=== PATIENT | female | born 1965 | race African-American/Black ===

== ENCOUNTER 2018-06-12 08:37 | Inpatient (IN) | payer SELFPAY ==
[~2018-06-12] VITALS: Ht 152.4 cm; Wt 61.7 kg
[2018-06-12 09:15] LABS: BASOPHILS % 0.7 % (0.0-2.0); EOSINOPHILS % 10.2 % (0.0-5.0); HEMOGLOBIN. 12.3 g/dL (12.0-16.0); LYMPHOCYTES % 32.9 % (20.0-50.0); MEAN CORPUSCULAR HEMOGLOBIN 26.9 pg (28.0-32.0); MEAN PLATELET VOLUME 7.6 fl (7.4-10.4); MONOCYTES % 5.6 % (2.0-8.0); NEUTROPHILS % 50.6 % (40.0-76.0); PLATELET 240 x1000/uL (130-400); RED BLOOD CELL COUNT 4.59 mill/uL (4.2-5.4); RED CELL DISTRIBUTION WIDTH 15.6 % (11.6-14.6)
[2018-06-12 09:18] LABS: CHLORIDE 106 mEq/L (98-107)
[2018-06-12 09:22] LABS: ETHANOL BLOOD < 10 mg/dL
[2018-06-12] MEDS ORDERED: METOCLOPRAMIDE HCL 10MG/2ML VIAL IV ONE (10:00)
[2018-06-12] MEDS ORDERED: KETOROLAC 30MG/ML VIAL IV ONE (10:00)
[2018-06-12] MEDS ORDERED: SODIUM CHLORIDE 0.9% 1,000 ML IV ONE ×2 (10:00→13:47)
[2018-06-12] MEDS ORDERED: LAMOTRIGINE 100MG TABLET PO STA (10:59)
[2018-06-12] MEDS ORDERED: CARBAMAZEPINE 200MG TABLET PO ONE (11:30)
[2018-06-12] MEDS ORDERED: ALBUTEROL (0.083%) 2.5MG/3ML NEB HHN STA (11:49)
[2018-06-12] MEDS ORDERED: IPRATROPIUM BROMIDE (0.02%) 0.5MG/2.5ML NEB HHN STA (11:49)
[2018-06-12] MEDS ORDERED: METHYLPREDNISOLONE SOD SUCC 125 MG/2 ML VIAL IV STA (11:51)
[2018-06-12] MEDS ORDERED: LEVOFLOXACIN 750MG PREMIX 150 ML IV ONE (13:45)
[2018-06-12] MEDS ORDERED: ACETAMINOPHEN 325MG TABLET PO PRN (14:00)
[2018-06-12] MEDS ORDERED: CLONIDINE 0.1MG TABLET PO PRN (14:00)
[2018-06-12] MEDS ORDERED: LORAZEPAM 2MG/ML CPJ IV PRN (14:00)
[2018-06-12] MEDS ORDERED: MAGNESIUM/ALUMINUM HYDROXIDE/SIMETHICONE 30ML UDC PO PRN (14:00)
[2018-06-12] MEDS ORDERED: HYDROCODONE/ACETAMINOPHEN 5/325MG TABLET PO PRN (14:00)
[2018-06-12] MEDS ORDERED: IPRATROPIUM/ALBUTEROL 0.5-3(2.5)MG/3ML NEB INH PRN (14:00)
[2018-06-12] MEDS ORDERED: DOCUSATE SODIUM 100MG CAPSULE PO PRN (14:00)
[2018-06-12] MEDS ORDERED: ONDANSETRON HCL 4MG/2ML INJ IV PRN (14:00)
[2018-06-12] MEDS ORDERED: DIPHENHYDRAMINE 50MG/ML VIAL IV PRN (14:00)
[2018-06-12] MEDS ORDERED: NA PHOS,M-B/NA PHOS,DI-BA ENEMA 118ML PR PRN (14:00)
[2018-06-12] MEDS ORDERED: GUAIFENESIN 200MG/10ML SUGAR FREE UDC PO PRN (14:00)
[2018-06-12 14:43] LABS: BG BASE EXCESS 0.1 mmol/L (-2.0-2.0); BG CARBOXYHEMOGLOBIN 0.3 % (0.5-1.5); BG DEOXYHEMOGLOBIN 2.5 % (0.0-5.0); BG FRACTION INSPIRED OXYGEN 100; BG HCO3 ACT 24.6 mmol/L (22.0-26.0); BG OXYGEN SATURATION 97.4 % (92.0-98.5); BG OXYHEMOGLOBIN 95.2 % (94.0-97.0); BG PCO2 39.7 mmHg (35.0-45.0); BG PO2 101.5 mmHg (75.0-100.0); BG SAMPLE SITE RIGHT RADIAL; BG TOTAL HEMOGLOBIN 13.1 g/dL (12.0-18.0); BG VENT MODE MASK - NRB
[2018-06-12 15:10] LABS: CHLORIDE 104 mEq/L (98-107)
[2018-06-12] MEDS ORDERED: PIPERACILLIN/TAZ 3.375G PREMIX 50 ML IV SCH (15:30)
[2018-06-12] MEDS: ENOXAPARIN 40MG/0.4ML SYR SUBCUT SCH (15:30)
[2018-06-12] MEDS ORDERED: HYDROMORPHONE HCL/PF 2MG/ML CPJ IV PRN (16:00)
[2018-06-12] MEDS: LORATADINE 10MG TABLET PO SCH (16:00)
[2018-06-12] MEDS: IPRATROPIUM/ALBUTEROL 0.5-3(2.5)MG/3ML NEB HHN SCH ×3 (16:09→23:21)
[2018-06-12] MEDS ORDERED: NEBIVOLOL HCL 5 MG TABLET PO NR (19:30)
[2018-06-12] MEDS: BUDESONIDE 0.5MG/2ML NEB HHN SCH (20:00)
[2018-06-12 20:16] LABS: CLARITY URINE CLEAR (CLEAR); COLOR URINE YELLOW (YELLOW); KETONES URINE NEGATIVE (NEGATIVE); LEUKOCYTE ESTERASE URINE TRACE (NEGATIVE); NITRITE URINE NEGATIVE (NEGATIVE); OCCULT BLOOD URINE 2+ (NEGATIVE); PH URINE 6.5 (4.5-8.0); PROTEIN URINE TRACE (NEGATIVE); SPECIFIC GRAVITY URINE 1.008 (1.005-1.030); UROBILINOGEN URINE 0.2 E.U./dL (0.2-1.0)
[2018-06-12 20:27] LABS: *AMPHETAMINES SCREEN URINE NEGATIVE (NEGATIVE); *BARBITURATES SCREEN URINE NEGATIVE (NEGATIVE); *BENZODIAZEPINES SCREEN URINE NEGATIVE (NEGATIVE); *COCAINE SCREEN URINE NEGATIVE (NEGATIVE); METHADONE URINE SCREEN NEGATIVE (NEGATIVE); OPIATES URINE SCREEN NEGATIVE (NEGATIVE)
[2018-06-12 20:28] LABS: CANNABINOID URINE SCREEN NEGATIVE (NEGATIVE); PHENCYCLIDINE URINE SCREEN NEGATIVE (NEGATIVE)
[2018-06-12] MEDS: FLUTICASONE PROPIONATE 50MCG/SPRAY BOTTLE BOTHNSTRLS SCH (21:00)
[2018-06-12] MEDS: FAMOTIDINE 20MG/2ML VIAL IV SCH (21:00)
[2018-06-12] MEDS: MONTELUKAST SODIUM 10MG TABLET PO SCH (21:00)
[2018-06-12] MEDS ORDERED: AMLODIPINE 5MG TABLET PO NR (23:30)
[2018-06-12] MEDS ORDERED: HYDRALAZINE HCL 25MG TABLET PO NR (23:30)
[2018-06-12] MEDS ORDERED: HYDRALAZINE HCL 25MG TABLET PO SCH (23:48)
[2018-06-13] VITALS (8 sets, daily range): BP systolic 108–154; BP diastolic 60–95
[2018-06-13] MEDS: ACETYLCYSTEINE 100MG/ML 10% VIAL 4ML INH SCH ×2 (05:04→08:21)
[2018-06-13] MEDS: IPRATROPIUM/ALBUTEROL 0.5-3(2.5)MG/3ML NEB HHN SCH ×5 (05:04→20:50)
[2018-06-13] MEDS: HYDRALAZINE HCL 25MG TABLET PO SCH ×3 (06:00→21:01)
[2018-06-13 06:24] LABS: BASOPHILS % 0.8 % (0.0-2.0); EOSINOPHILS % 4.6 % (0.0-5.0); HEMOGLOBIN. 10.9 g/dL (12.0-16.0); MEAN CORPUSCULAR VOLUME 84.4 fL (81.0-99.0); MEAN PLATELET VOLUME 8.3 fl (7.4-10.4); MONOCYTES % 11.2 % (2.0-8.0); NEUTROPHILS % 40.4 % (40.0-76.0); PLATELET 214 x1000/uL (130-400); RED BLOOD CELL COUNT 4.03 mill/uL (4.2-5.4); RED CELL DISTRIBUTION WIDTH 15.3 % (11.6-14.6)
[2018-06-13 06:34] LABS: CHLORIDE 107 mEq/L (98-107)
[2018-06-13 06:49] LABS: HDL CHOLESTEROL 94 mg/dL (40-59); LDL CHOLESTEROL 98 mg/dL (5-100)
[2018-06-13 06:50] LABS: T4 FREE 0.67 ng/dL (0.76-1.46)
[2018-06-13] MEDS: BUDESONIDE 0.5MG/2ML NEB HHN SCH ×2 (08:21→20:50)
[2018-06-13] MEDS: FAMOTIDINE 20MG/2ML VIAL IV SCH ×2 (09:08→20:55)
[2018-06-13] MEDS: ASPIRIN 81MG EC TABLET PO SCH (09:08)
[2018-06-13] MEDS: LORATADINE 10MG TABLET PO SCH (09:09)
[2018-06-13] MEDS: AMLODIPINE 5MG TABLET PO SCH ×2 (09:09→21:01)
[2018-06-13] MEDS: NEBIVOLOL HCL 5 MG TABLET PO SCH (09:10)
[2018-06-13] MEDS ORDERED: LAMOTRIGINE MT SCH (09:45)
[2018-06-13] MEDS ORDERED: asmanex INH (09:54)
[2018-06-13] MEDS ORDERED: TIOT18CA3 INH (09:54)
[2018-06-13] MEDS ORDERED: AMLO10TA80 MT (09:54)
[2018-06-13] MEDS ORDERED: LAMO100T65 MT (09:54)
[2018-06-13] MEDS ORDERED: CETI10CA11 PO (09:54)
[2018-06-13] MEDS ORDERED: MONT10TA24 MT (09:54)
[2018-06-13] MEDS ORDERED: MOME13HF INH (09:54)
[2018-06-13] MEDS ORDERED: Proventil INH (09:54)
[2018-06-13] MEDS ORDERED: CARB200T MT (09:54)
[2018-06-13] MEDS: LAMOTRIGINE 100MG TABLET PO SCH ×2 (10:41→17:09)
[2018-06-13] MEDS: FLUTICASONE PROPIONATE 50MCG/SPRAY BOTTLE BOTHNSTRLS SCH ×2 (10:42→20:54)
[2018-06-13] MEDS: CARBAMAZEPINE 200MG TABLET PO SCH ×2 (10:42→17:09)
[2018-06-13] MEDS ORDERED: PIPERACILLIN/TAZ 3.375G PREMIX 50 ML IV SCH (12:00)
[2018-06-13] MEDS ORDERED: CEFTRIAXONE 1 G PREMIX 50 ML IV SCH (15:00)
[2018-06-13] MEDS: AZITHROMYCIN 500 MG TABLET PO SCH (15:58)
[2018-06-13] MEDS: ENOXAPARIN 40MG/0.4ML SYR SUBCUT SCH (15:59)
[2018-06-13] MEDS: MONTELUKAST SODIUM 10MG TABLET PO SCH (17:10)
[2018-06-14] VITALS (9 sets, daily range): BP systolic 90–157; BP diastolic 44–76
[2018-06-14] MEDS: IPRATROPIUM/ALBUTEROL 0.5-3(2.5)MG/3ML NEB HHN SCH ×3 (00:10→10:05)
[2018-06-14] MEDS: HYDRALAZINE HCL 25MG TABLET PO SCH ×2 (06:00→14:00)
[2018-06-14] MEDS: FLUTICASONE PROPIONATE 50MCG/SPRAY BOTTLE BOTHNSTRLS SCH (09:15)
[2018-06-14] MEDS: FAMOTIDINE 20MG/2ML VIAL IV SCH (09:15)
[2018-06-14] MEDS: ASPIRIN 81MG EC TABLET PO SCH (09:15)
[2018-06-14] MEDS: AZITHROMYCIN 500 MG TABLET PO SCH (09:16)
[2018-06-14] MEDS: CARBAMAZEPINE 200MG TABLET PO SCH (09:16)
[2018-06-14] MEDS: LORATADINE 10MG TABLET PO SCH (09:16)
[2018-06-14] MEDS: NEBIVOLOL HCL 5 MG TABLET PO SCH (09:16)
[2018-06-14] MEDS: AMLODIPINE 5MG TABLET PO SCH (09:17)
[2018-06-14] MEDS: LAMOTRIGINE 100MG TABLET PO SCH (09:17)
[2018-06-14] MEDS: BUDESONIDE 0.5MG/2ML NEB HHN SCH (10:05)
== END 2018-06-14 15:10 | disposition home or self-care (01) | DRG 53 ==
LOC: ER 08:37 → 5EST 13:48 → EDBEDREQ 13:53 → ENRESERV 06-13 00:02
PROVIDERS: ADMIT Internal Medicine; ATTEND Internal Medicine
DX: G40.409 Other generalized epilepsy and epileptic syndromes, not intractable, without status epilepticus (principal); J96.00 Acute respiratory failure, unspecified whether with hypoxia or hypercapnia; J69.0 Pneumonitis due to inhalation of food and vomit; D72.1 Eosinophilia; J45.901 Unspecified asthma with (acute) exacerbation; I10 Essential (primary) hypertension; J00 Acute nasopharyngitis [common cold]; Z79.51 Long term (current) use of inhaled steroids; Z79.899 Other long term (current) drug therapy; Z82.49 Family history of ischemic heart disease and other diseases of the circulatory system; Z82.5 Family history of asthma and other chronic lower respiratory diseases; Z88.8 Allergy status to other drugs, medicaments and biological substances
CPT/HCPCS: 36415; 36600; 71045; 80048; 80061; 80305; 80320; 82375; 82805; 83036; 84439; 84443; 84484; 93005; 93306; 94640; 96374; 96375; 99291; J0696; J1650; J1885; J1956; J2543; J2765; J2930; J3490; J7030; J7608; J7611; J7620; J7626; G0480